=== PATIENT | female | born 1945 | race Caucasian/White ===

== ENCOUNTER → 2016-10-13 | Outpatient (REF) | payer MEDICARE, OTHER ==
[~2016-10-13] MED LIST: /ADVA50050; /FEXO18TA; CALC600T10; CALCTAB22; DYAZ37.5; OMEP20TA7; RHINOCORT; SIMV20TA2; SYNT50TA; THERGRAN; TYLENOL #3; VITAMIN D; [UNRECOGNIZED DRUG - OTHER]
== END ==
LOC: M LAB REF 13:18
PROVIDERS: ATTEND Internal Medicine Medical Oncology
DX: C50.919 Malignant neoplasm of unspecified site of unspecified female breast (principal)

== ENCOUNTER → 2016-11-27 | Outpatient (REF) | payer MEDICARE, OTHER ==
[2016-11-27 19:20] LABS: FREE T4 1.34 NG/DL (0.76-1.46)
== END ==
LOC: M LABDRAW1 16:05
PROVIDERS: ATTEND Physician Assistant Medical
DX: E89.0 Postprocedural hypothyroidism (principal); C73 Malignant neoplasm of thyroid gland

== ENCOUNTER → 2016-12-17 | Outpatient (CLI) | payer MEDICARE, OTHER ==
--- NOTE | 2016-12-17 11:00 | RADONC ---
RADIATION ONCOLOGY DATE: 12/17/2016 CHART NO: 15 - 027 DIAGNOSIS: Right breast cancer. STAGE: II B, T2N1M0. ECOG PERFORMANCE STATUS: 0 Ms. 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 The patient presents today reporting that she is doing generally quite well with no complaints at this time related to her radiation therapy or disease. She does have some cardiac issues as well as hypothyroidism. But no issues related to her malignancy. REVIEW OF SYSTEMS: The patient's review of systems is positive for some fatigue but is otherwise noncontributory. She denies nausea, vomiting, fevers, chills, night sweats, diplopia, headaches, anxiety or depression, anorexia, weight loss, visual disturbances, chest pain, urinary or bowel difficulties, bone pain, or neurological problems. PHYSICAL EXAMINATION: The patient is a well-developed, well-nourished female in no acute distress. HEENT exam is normocephalic, atraumatic. Extraocular movements are intact. There is no palpable cervical, supraclavicular, infraclavicular, axillary, or inguinal lymphadenopathy present. Lungs are clear to auscultation and percussion. Heart has a regular rate and rhythm. Abdomen is benign with no hepatosplenomegaly, masses, or tenderness. Breast examination reveals no masses or discharge bilaterally. Skeletal examination reveals no tenderness to pressure or percussion of the bony skeleton. Extremities reveal no clubbing, cyanosis, or edema. Neurologic exam is grossly intact, as is the remainder of the physical examination. ASSESSMENT: The patient is clinically RHYS at this time. She is being followed closely by Dr. Abebe and Dr. Cool. At the patient's request, we are discharging her from our followup at this time. cc: MD Froilan Yañez MD *Jessica Abebe MD *MD RICHARD Jimenez
== END ==
LOC: M ONCR 09:25
PROVIDERS: ATTEND Radiology Radiation Oncology
DX: C50.511 Malignant neoplasm of lower-outer quadrant of right female breast (principal)

== ENCOUNTER → 2017-04-23 | Outpatient (REF) | payer MEDICARE, OTHER | LOC: M LAB REF 13:48 | PROVIDERS: ATTEND Internal Medicine Medical Oncology | DX: C50.919 Malignant neoplasm of unspecified site of unspecified female breast (principal) ==

== ENCOUNTER → 2019-07-25 | Outpatient (REF) | payer MEDICARE, OTHER ==
[~2019-07-25] MED LIST changes: -/ADVA50050; +ADVA1AER2; +AMLO5TAB6 PO; +ANAS1TAB2 PO; +ARIM1TAB5 PO; +CALC600T7 PO; +CHLO125TA PO; +GLUC1TAB58 PO; +MULTCAP PO; +RA N1TAB PO; +ROSU10TA6 PO; +SPIR-10 PO; +SYNT125T PO
== END ==
LOC: M LAB LCGH 15:00
PROVIDERS: ATTEND Physician Assistant
DX: D48.5 Neoplasm of uncertain behavior of skin (principal)